=== PATIENT | female | born 1995 | race Caucasian/White ===

== ENCOUNTER 2018-10-10 04:13 | Emergency (ER) | payer MEDICAID ==
[~2018-10-10] VITALS: Ht 170.2 cm; Wt 52.2 kg
[2018-10-10 04:17] VITALS: BP 144/84
[2018-10-10] MEDS ORDERED: BENADRYL25 MG PO (04:20)
[2018-10-10] MEDS ORDERED: NEXIUM40 MG PO (04:21)
[2018-10-10] MEDS ORDERED: NERVE MEDICATION (04:21)
[2018-10-10] MEDS ORDERED: AUGMENTIN 875-1 EACH PO (04:28)
== END 2018-10-10 04:38 | disposition home or self-care (01) ==
LOC: M.ERS 04:13
DX: H66.91 Otitis media, unspecified, right ear (principal); Z88.2 Allergy status to sulfonamides